=== PATIENT | male | born 1960 | race Two or more races ===

== ENCOUNTER 2018-05-27 15:50 | Emergency (ER) | payer BC ==
[2018-05-27] MEDS: IBUPROFEN 600 MG TAB PO (17:28)
== END 2018-05-27 19:39 | disposition home or self-care (01) ==
LOC: FTE 15:50
DX: S82.202A Unspecified fracture of shaft of left tibia, initial encounter for closed fracture (principal); S80.02XA Contusion of left knee, initial encounter; F17.210 Nicotine dependence, cigarettes, uncomplicated; W11.XXXA Fall on and from ladder, initial encounter; Y92.9 Unspecified place or not applicable
CPT/HCPCS: 29505; 73562; 99283-25

== ENCOUNTER 2018-06-20 09:00 | Day surgery (SDC) | payer BC ==
[2018-06-20] MEDS ORDERED: PROPOFOL 20 ML ×2 (11:19→12:35)
[2018-06-20] MEDS ORDERED: FENTAnyl 50 MCG/ML VIAL (11:19)
[2018-06-20] MEDS ORDERED: ONDANSETRON 4 MG INJ IV (11:30)
== END 2018-06-20 14:24 | disposition home or self-care (01) ==
LOC: GIL 09:00
DX: Z12.11 Encounter for screening for malignant neoplasm of colon (principal); K64.8 Other hemorrhoids; D12.0 Benign neoplasm of cecum; D12.2 Benign neoplasm of ascending colon; E78.5 Hyperlipidemia, unspecified
CPT/HCPCS: 45380; 88305